=== PATIENT | female | born 1975 | race Caucasian/White ===

== ENCOUNTER → 2018-02-28 | Outpatient (CLI) | payer OTHER ==
--- NOTE | 2018-02-28 11:38 | MM ---
Reason for exam: clinical finding. History: Benign excisional biopsy of the right breast, 1996. Indicated problem(s): lump or thickening in the left breast. Physical Findings: Nurse Summary: 1.5cm nodule in the right breast at 3 o'clock, 0.5cm nodule in the left breast at 12 o'clock (nurse mj). MG Diagnostic Mammo w CAD TAVIA Bilateral CC and MLO view(s) were taken. The breast tissue is heterogeneously dense. This may lower the sensitivity of mammography. Benign calcifications seen. Nodularity seen bilaterally. These results were verbally communicated with the patient and result sheet given to the patient on 02/28/18. ASSESSMENT: Incomplete: need additional imaging evaluation, BI-RAD 0 RECOMMENDATION: Ultrasound of both breasts.
--- NOTE | 2018-02-28 11:44 | USB ---
Reason for exam: additional evaluation requested from abnormal screening. History: Benign excisional biopsy of the right breast, 1996. US Breast Limited BILAT Right limited breast ultrasound including focal area of concern, retroareolar and axilla demonstrates a 1.4 x 1.0 x 0.9cm oval, cystic lesion at 12 o'clock, a 0.9 x 0.9 x 0.6cm oval, cystic lesion at 1 o'clock, a 0.9 x 1.1 x 0.8cm oval, cystic lesion at 3 o'clock and duct ectasia at the posterior nipple. Left complete breast ultrasound includes all four quadrants, the retroareolar region and axilla. Finding demonstrates several oval, cystic lesions measuring 0.6 x 0.7 x 0.5cm cluster at 12 o'clock BB, 1.2 x 1.5 x 0.9cm at 2 o'clock, 1.4 x 0.9 x 0.8cm at 2 o'clock, 1.9 x 2.0 x 0.6cm at 2 o'clock, 0.8 x 1.0 x 0.5cm at 6 o'clock, 0.5 x 0.5 x 0.4cm at 8 o'clock, 0.7 x 0.6 x 0.4cm at 9 o'clock, 0.8 x 0.6 x 0.4cm at 11 o'clock and ductal ectasia at the posterior nipple. These results were verbally communicated with the patient and result sheet given to the patient on 02/28/18. ASSESSMENT: Benign, BI-RAD 2 RECOMMENDATION: Routine screening mammogram of both breasts in 1 year. Manage patient on a clinical basis.
== END | disposition home or self-care (01) ==
LOC: RADMAMWWP 09:27
PROVIDERS: ATTEND Pediatrics
DX: N63.20 Unspecified lump in the left breast, unspecified quadrant (principal); R92.8 Other abnormal and inconclusive findings on diagnostic imaging of breast
CPT/HCPCS: 77066

== ENCOUNTER → 2019-05-28 | Outpatient (CLI) | payer OTHER ==
--- NOTE | 2019-05-29 13:49 | MM ---
Reason for exam: screening (asymptomatic). Last mammogram was performed 1 year and 3 months ago. History: Benign excisional biopsy of the right breast, 1996. Physical Findings: A clinical breast exam by your physician is recommended on an annual basis and results should be correlated with mammographic findings. MG Screening Mammo w CAD Bilateral CC and MLO view(s) were taken. Prior study comparison: February 28, 2018, bilateral MG diagnostic mammo w CAD TAVIA. The breast tissue is heterogeneously dense. This may lower the sensitivity of mammography. There are benign appearing round, oval, circumscribed masses representing cysts seen on the ultrasound of 02/28/18 at 9-2 o'clock on the right and 12-3 o'clock on the left. Benign appearing calcifications in the left breast. No suspicious abnormality. No significant changes when compared with prior studies. ASSESSMENT: Benign, BI-RAD 2 RECOMMENDATION: Routine screening mammogram of both breasts in 1 year.
== END | disposition home or self-care (01) ==
LOC: RADMAMWWP 10:18
PROVIDERS: ATTEND Pediatrics
DX: Z12.31 Encounter for screening mammogram for malignant neoplasm of breast (principal)
CPT/HCPCS: 77067

== ENCOUNTER → 2020-11-09 | Outpatient (CLI) | payer OTHER ==
--- NOTE | 2020-11-11 12:03 | MM ---
Reason for exam: screening (asymptomatic). Last mammogram was performed 1 year and 5 months ago. History: Benign excisional biopsy of the right breast, 1996. Physical Findings: A clinical breast exam by your physician is recommended on an annual basis and results should be correlated with mammographic findings. MG Screening Mammo w CAD Bilateral CC and MLO view(s) were taken. Prior study comparison: May 28, 2019, bilateral MG screening mammo w CAD. February 28, 2018, bilateral MG diagnostic mammo w CAD TAVIA. The breast tissue is heterogeneously dense. This may lower the sensitivity of mammography. Suspect underlying partially obscured and partially circumscribed masses right upper outer quadrant, measuring up to 2.7cm versus 2cm previously. Underlying cysts are suspected. ASSESSMENT: Incomplete: need additional imaging evaluation, BI-RAD 0 RECOMMENDATION: Ultrasound of the right breast. [facility] will attempt to contact patient to return for ultrasound.
== END ==
LOC: RADMAMWWP 15:41
PROVIDERS: ATTEND Pediatrics
DX: Z12.31 Encounter for screening mammogram for malignant neoplasm of breast (principal)
CPT/HCPCS: 77067

== ENCOUNTER → 2020-11-23 | Outpatient (CLI) | payer OTHER ==
--- NOTE | 2020-11-23 09:50 | USB ---
Reason for exam: additional evaluation requested from abnormal screening. History: Benign excisional biopsy of the right breast, 1996. Physical Findings: Nurse did not find any significant physical abnormalities on exam. US Breast Workup Limited RT Right limited breast ultrasound including focal area of concern, retroareolar and axilla demonstrates a 2.0 x 1.7 x 1.3cm oval, cystic cluster at 12 o'clock BB, a 0.8 x 0.7 x 0.5cm oval, cystic lesion at 9 o'clock, a 2.4 x 2.3 x 1.2cm oval, cystic lesion at 10 o'clock, a 0.5 x 0.7 x 0.4cm oval, cystic cluster at 11 o'clock and duct ectasia at the posterior nipple. These results were verbally communicated with the patient and result sheet given to the patient on 11/23/20. ASSESSMENT: Benign, BI-RAD 2 RECOMMENDATION: Return to routine screening mammogram schedule for both breasts.
== END | disposition home or self-care (01) ==
LOC: RADUSWWP 07:37
PROVIDERS: ATTEND Pediatrics
DX: N60.01 Solitary cyst of right breast (principal); N60.41 Mammary duct ectasia of right breast

== ENCOUNTER 2021-10-13 13:12 | Emergency (ER) | payer OTHER ==
[2021-10-13 13:25] VITALS: BP 115/72; PULSE 92; RESP 16; TEMP 97.9
--- NOTE | 2021-10-13 14:55 | XR ---
EXAMINATION TYPE: XR knee complete RT DATE OF EXAM: 10/13/2021 COMPARISON: NONE HISTORY: 46 year-old female right knee pain TECHNIQUE: 3 views FINDINGS: There is tricompartmental degenerative spurring. Small knee joint effusion. Extensor mechan ism is intact. Mild to moderate narrowing of medial compartment joint space. No acute fracture, sublu xation, or dislocation. IMPRESSION: 1. Tricompartmental breast arthrosis. [id number] within the medial compartment. 2. Small knee joint effusion. This is nonspecific and may be reactive. If concern for internal derang ement, MRI can be performed. 3. No acute osseous abnormality seen.
--- NOTE | 2021-10-13 15:36 | US ---
EXAMINATION TYPE: US venous doppler duplex LE RT DATE OF EXAM: 10/13/2021 3:30 PM COMPARISON: NONE CLINICAL HISTORY: 46-year-old female Posterior knee pain . Right leg pain x 1 day SIDE PERFORMED: Right TECHNIQUE: The lower extremity deep venous system is examined utilizing real time linear array sonog annabelle with graded compression, doppler sonography and color-flow sonography. FINDINGS: VESSELS IMAGED: Common Femoral Vein Deep Femoral Vein Greater Saphenous Vein * Femoral Vein Popliteal Vein Small Saphenous Vein * Proximal Calf Veins (* superficial vessels) Right Leg: Appears negative for DVT Right popliteal fossa: 5.3 x 0.8 x 3.9cm Fitch's cyst. Thin elongated, mildly complex Fitch's cyst. IMPRESSION: 1. No evidence for DVT within the right lower extremity imaged from the groin to the upper calf. 2. A thin but elongated, mildly complex Fitch's cyst.
[2021-10-13] MEDS ORDERED: KETOROLAC 15 MG/ML 1 ML VIAL IM STA (16:00)
--- NOTE | 2021-10-13 16:12 | ED ---
General Adult HPI - General Chief complaint: Extremity Injury, Lower Stated complaint: R knee pain Time Seen by Provider: 10/13/21 14:48 Source: patient Mode of arrival: wheelchair Limitations: no limitations - History of Present Illness Initial comments: This is a 46-year-old female who presents emergency department for right knee pain. States that this morning she woke up with pain behind her knee. Denies any known injuries. This is described as being crampy and radiates both superiorly and inferiorly. She was unable to walk this morning due to the pain. She is currently being seen by orthopedics and has plans for bilateral knee replacements. Location: lower extremity (Right knee) Severity scale (1-10): 8 Quality: other (cramping) Consistency: constant Improves with: none Associated Symptoms: denies other symptoms - Related Data Allergies Allergy/AdvReac Type Severity Reaction Status Date / Time No Known Allergies Allergy Verified 10/13/21 13:25 Review of Systems ROS Statement: Those systems with pertinent positive or pertinent negative responses have been documented in the HPI. ROS Other: All systems not noted in ROS Statement are negative. Constitutional: Denies: fever, chills Respiratory: Denies: cough, dyspnea Cardiovascular: Denies: chest pain, palpitations Gastrointestinal: Denies: abdominal pain, nausea, vomiting Musculoskeletal: Reports: other (posterior right knee pain) Skin: Denies: rash, lesions Neurological: Denies: headache, weakness Past Medical History Past Medical History: Deep Vein Thrombosis (DVT) Additional Past Medical History / Comment(s): sjogrens disease History of Any Multi-Drug Resistant Organisms: None Reported Past Surgical History: Section, Cholecystectomy, Hysterectomy Past Psychological History: No Psychological Hx Reported Smoking Status: Never smoker Past Alcohol Use History: None Reported Past Drug Use History: None Reported General Exam Limitations: no limitations General appearance: alert, in no apparent distress Head exam: Present: atraumatic, normocephalic, normal inspection Respiratory exam: Present: normal lung sounds bilaterally. Absent: respiratory distress, wheezes, rales, rhonchi, stridor Cardiovascular Exam: Present: regular rate, normal rhythm, normal heart sounds. Absent: systolic murmur, diastolic murmur, rubs, gallop, clicks Right Upper Leg exam: Present: normal inspection, full ROM. Absent: tenderness Knee exam: Present: full ROM, tenderness (Tenderness and mild fullness in the popliteal fossa ). Absent: ecchymosis, erythema Lower Leg exam: Present: normal inspection, full ROM. Absent: tenderness Neurovascular tendon exam: Present: no vascular compromise. Absent: pulse deficit, abnormal cap refill Neurological exam: Present: alert, oriented X3, CN II-XII intact Psychiatric exam: Present: normal affect, normal mood Skin exam: Present: warm, dry, intact, normal color. Absent: rash Course Vital Signs 10/13/21 13:21 Temperature 97.9 F Pulse Rate 92 Respiratory 16 Rate Blood Pressure 115/72 O2 Sat by Pulse 97 Oximetry - Reevaluation(s) Time: 15:10 Time: 15:50 Medical Decision Making - Medical Decision Making Given the acute onset, severity of the pain, and palpable fullness of the posterior aspect of the knee, an ultrasound was performed. Ultrasound revealed a popliteal cyst, consistent with the patient's symptoms. No DVTs were visualized, nor were they expected, as the patient does not have any erythema, swelling, or increased heat. Patient given injection of Toradol prior to discharge. Advised patient contact her orthopedic surgeon and discuss changes in medication, specifically the anti-inflammatory, given her current pain and new finding of the popliteal cyst. Disposition Clinical Impression: Popliteal cyst Disposition: HOME SELF-CARE Condition: Stable Instructions (If sedation given, give patient instructions): Bakers Cyst (ED) Additional Instructions: Return to the emergency department if symptoms worsen or do not improve. Is patient prescribed a controlled substance at d/c from ED?: No Referrals: Presley Moran MD [Primary Care Provider] - 1-2 days
== END 2021-10-13 16:31 | disposition home or self-care (01) ==
LOC: EC 13:12
DX: M71.21 Synovial cyst of popliteal space [Baker], right knee (principal); Z86.718 Personal history of other venous thrombosis and embolism; Z90.49 Acquired absence of other specified parts of digestive tract; Z90.710 Acquired absence of both cervix and uterus
CPT/HCPCS: 99284; 96372; 73562; 93971; J1885

== ENCOUNTER → 2021-10-27 | Outpatient (CLI) | payer OTHER ==
--- NOTE | 2021-10-27 15:42 | US ---
EXAMINATION TYPE: US thyroid st tissue head/neck DATE OF EXAM: 10/27/2021 COMPARISON: NONE CLINICAL HISTORY: 46-year-old female E04.1. thyroid nodule GLAND SIZE: Right Lobe: 4.5 x 1.8 x 1.1 cm Overall Parenchyma: homogenous Left Lobe: 4.5 x 1.2 x 1.7 cm Overall Parenchyma: homogeneous Isthmus Thickness: cm NODULES RIGHT: # of nodules measured on right: 1 1. .47 X .5 x .6 cm, mid mid, solid or almost completely solid, isoechoic TR3 nodule, which is wide r than tall, with ill-defined margins, without echogenic foci. Prior size no prior LEFT: # of nodules measured on left: 1 1. 2.3 X 1.2 x 2.0 cm, lower , solid or almost completely solid, isoechoic TR3 nodule, which is wid er than tall, with smooth margins, without echogenic foci. Prior size: No prior ISTHMUS: # of nodules measured in the isthmus: 0 Bilateral neck scanned, no evidence of lymphadenopathy. IMPRESSION: A TR3 nodule on either side. The nodule on the left is larger at 2.3 cm. Follow-up recommended. FNA i f it reaches 2.5 cm.
== END | disposition home or self-care (01) ==
LOC: RADUSWWP 12:19
PROVIDERS: ATTEND Psychiatry & Neurology Neurology
DX: E04.1 Nontoxic single thyroid nodule (principal)
CPT/HCPCS: 76536

== ENCOUNTER → 2021-10-27 | Outpatient (CLI) | payer OTHER ==
[2021-10-27 13:15] LABS: INR 0.9 (<1.2); Prothrombin Time 9.8 sec (9.0-12.0)
[2021-10-27 18:17] LABS: African American GFR (CKD) 79.4 (60.0-200.0); Albumin 4.2 g/dL (3.8-4.9); Albumin/Globulin Ratio 1.58 (1.60-3.17); Anion Gap 11.1 mmol/L (10.00-18.00); Calcium 8.7 mg/dL (8.7-10.3); Carbon Dioxide 21.7 mmol/L (20.0-27.5); Globulin 2.6 g/dL (1.6-3.3); Non-African American GFR(CKD) 68.5 (60.0-200.0); Potassium 4.3 mmol/L (3.5-5.5); Total Bilirubin 0.8 mg/dL (0.30-1.20); Total Protein 6.8 g/dL (6.2-8.2)
[2021-10-27 19:53] LABS: HCT 36.4 % (37.2-46.3); HGB 11.6 g/dL (12.0-15.0); MCH 29.6 pg (27.0-32.0); MCHC 31.9 g/dL (32.0-37.0); MCV 92.9 fL (80.0-97.0); Mean Platelet Volume 8.9 fL (9.5-12.2); NRBC Per 100 WBC 0 /100 WBCS (0.0-0.0); Platelet Count 463 X 10*3/uL (140-440); RBC 3.92 X 10*6/uL (4.10-5.20); RDW 12.5 % (11.5-14.5); WBC 8.53 X 10*3/uL (4.50-10.00)
[2021-10-27 21:11] LABS: Appearance,Urine Clear (Clear); Bilirubin,Urine Negative (Negative); Blood,Urine Negative (Negative); Color,Urine Yellow (Yellow); Ketones,Urine Negative (Negative); Leukocyte Esterase,Urine Negative (Negative); Nitrite,Urine Negative (Negative); Protein,Urine Negative (Negative); Urobilinogen,Urine 0.2 (0.2,1.0)
== END | disposition home or self-care (01) ==
LOC: LABPAT 12:17
PROVIDERS: ATTEND Orthopaedic Surgery
DX: Z01.818 Encounter for other preprocedural examination (principal); M17.12 Unilateral primary osteoarthritis, left knee
CPT/HCPCS: 80053; 81003; 85027; 85610; 85730; 87070; 93005

== ENCOUNTER 2021-11-11 09:16 | Day surgery (SDC) | payer OTHER ==
[2021-11-08 09:56] VITALS: BMI 35.4
[~2021-11-11 09:16] MED LIST: ACETAMINOPHEN TAB 500 MG TAB PO PRN; DEXAMETHASONE SOD PHOSPHATE 10 MG/ML 1 ML VIAL IV PRN; DEXAMETHASONE SOD PHOSPHATE 4 MG/ML 1 ML VIAL IV ONE; DOCUSATE 100 MG CAP PO PRN; FAMOTIDINE 20 MG/2 ML VIAL IVP PRN; HYDROmorphone 0.5 MG/0.5 ML SYRINGE IVP PRN; KETOROLAC 15 MG/ML 1 ML VIAL IVP PRN; LACTATED RINGERS 1,000 ML IV SCH; ONDANSETRON 4 MG/2 ML VIAL IVP ONE; ONDANSETRON 4 MG/2 ML VIAL IVP PRN; TRANEXAMIC ACID 1,000 MG in SODIUM CHLORIDE 0.9% 100 ML IVPB ONE; TRANEXAMIC ACID IN NACL,ISO-OS 1,000 MG in SALINE 1 100ML.BAG IVPB PRN; oxyCODONE ER 10 MG TAB.ER.12H PO PRN
[2021-11-11] MEDS ORDERED: MIDAZOLAM 2 MG/2 ML VIAL IV ONE (10:24)
--- NOTE | 2021-11-11 11:01 | P.ANPRN ---
Procedure Note - Anesthesia - Nerve Block Performed Left Adductor Canal Infusion Time Out Performed: Yes (1023) Date of Procedure: 11/11/21 Procedure Start Time: 10:24 Procedure Stop Time: :31 Location of Patient: PreOp Indication: Acute Post-Operative Pain, Requested by Surgeon Specifically requested for management of pain by DrJake: Crescencio Lal Sedation Type: Sedate with meaningful contact maintained Preparation: Sterile Prep, Sterile Dressing Position: Supine (8) Catheter Depth at Skin (cm): 9 Catheter: Indwelling Needle Types: Pajunk Needle Gauge: 21 Ultrasound used to visualize needle placement: Yes Ultrasound used to observe medication spread: Yes Injectate: 0.5% Ropivacaine (see comment for volume) (15cc + 5cc nacl) Blood Aspirated: No Pain Paresthesia on Injection Noted: No Resistance on Injection: Normal Image Stored and Saved: Yes Events: Uneventful and Well Tolerated
--- NOTE | 2021-11-11 11:03 | P.ANPRN ---
Procedure Note - Anesthesia - Nerve Block Performed Left iPack Single Time Out Performed: Yes (1023) Date of Procedure: 11/11/21 Procedure Start Time: :24 Procedure Stop Time: : Location of Patient: PreOp Indication: Acute Post-Operative Pain, Requested by Surgeon Specifically requested for management of pain by DrJake: Crescencio Lal Sedation Type: Sedate with meaningful contact maintained Preparation: Sterile Prep Position: Supine Catheter: None Needle Types: Pajunk Needle Gauge: 21 Ultrasound used to visualize needle placement: Yes Ultrasound used to observe medication spread: Yes Injectate: 0.5% Ropivacaine (see comment for volume) (15cc + 5cc nacl) Blood Aspirated: No Pain Paresthesia on Injection Noted: No Resistance on Injection: Normal Image Stored and Saved: Yes Events: Uneventful and Well Tolerated
[2021-11-11] MEDS: ROPIVACAINE/EPI/CLONIDINE/KET 50 ML SYRINGE MISCELLANE PRN ×2 (13:39→14:54)
[2021-11-11] MEDS ORDERED: TRANEXAMIC ACID IN NACL,ISO-OS 1,000 MG/100 ML BAG ONE (13:42)
[2021-11-11] MEDS ORDERED: LIDOCAINE 1% INJ 10MG/ML (20 ML MDV) ONE (13:42)
[2021-11-11] MEDS ORDERED: ceFAZolin 3,000 MG in SODIUM CHLORIDE 0.9% IRRIGATIO 3,000 ML IRRIGATION ONE (13:42)
[2021-11-11] MEDS ORDERED: SODIUM CHLORIDE 0.9% (PF) 10 ML VIAL ONE (13:42)
[2021-11-11] MEDS ORDERED: MIDAZOLAM 2 MG/2 ML VIAL ONE (13:42)
[2021-11-11] MEDS ORDERED: ePHEDrine 50 MG/ML 1 ML VIAL ONE (13:42)
[2021-11-11] MEDS ORDERED: PROPOFOL 10 MG/ML 20 ML VIAL IV ONE (13:42)
[2021-11-11] MEDS ORDERED: ROCURONIUM 10 MG/ML (5 ML VIAL) IV ONE (13:42)
[2021-11-11] MEDS ORDERED: fentaNYL (PF) 50 MCG/ML 2 ML AMP ONE (13:42)
[2021-11-11] MEDS ORDERED: GLYCOPYRROLATE 0.2 MG/ML 2 ML VIAL ONE (13:42)
[2021-11-11] MEDS ORDERED: NEOSTIGMINE 1 MG/ML 10 ML VIAL ONE (13:42)
[2021-11-11] MEDS ORDERED: PHENYLEPHRINE-0.9% NACL SYG 1,000 MCG/10 ML SYRINGE ONE (13:42)
[2021-11-11] MEDS ORDERED: ROPIVACAINE 5 MG/ML 30 ML VIAL ONE (13:42)
[2021-11-11] MEDS ORDERED: LACTATED RINGERS 1,000 ML IV ONE (14:33)
[2021-11-11] MEDS ORDERED: ONDANSETRON 4 MG/2 ML VIAL IVP PRN (15:59)
[2021-11-11] MEDS ORDERED: HYDROmorphone 1 MG/ML 1 ML SYRINGE IVP PRN (15:59)
[2021-11-11] MEDS ORDERED: HYDROcodone/APAP 5-325MG 1 EACH TAB PO PRN ×2 (15:59)
[2021-11-11] MEDS ORDERED: NALOXONE 0.4 MG/ML 1 ML VIAL IV PRN (15:59)
[2021-11-11] MEDS ORDERED: HYDROmorphone 0.5 MG/0.5 ML SYRINGE IVP PRN (15:59)
[2021-11-11] MEDS ORDERED: HYDROmorphone 0.2 MG/1 ML SYRINGE IVP PRN (15:59)
--- NOTE | 2021-11-11 16:09 | P.OP ---
Date of Procedure: 11/11/21 Preoperative Diagnosis: 1. Left medial compartment osteoarthritis 2. BMI 35 Postoperative Diagnosis: Same Procedure(s) Performed: Left medial compartment unicompartmental knee arthroplasty Implants: 1. [place] MCK Size #3 Femur 2. [place] MCK Size #3 Tibia 3. [place] MCK Size #3, 8-mm poly Anesthesia: GETA, regional Surgeon: Crescencio Lal Material Handling Technician #1: Anabella Sanz Estimated Blood Loss (ml): 25 IV fluids (ml): 1,200 Pathology: none sent Condition: stable Disposition: PACU Indications for Procedure: The patient is very pleasant. Healthy 46-year-old female who was referred to me by Robert Reed with bilateral knee pain. The patient had isolated medial compartment arthritis on both knees worsen the left. She failed a long course of nonsurgical treatment and has requested proceeding with surgery. We discussed osteotomy, medial compartment arthroplasty, and total knee arthroplasty. Based on the patient's presentation, physical exam, age, and x- ray findings I think she would do best with a medial compartment partial knee arthroplasty. Her BMI was 35 which is acceptable. When asked to localize her pain she pointed only over the medial compartment of the knee. We discussed the potential for conversion of the partial to total knee replacement if there is more diffuse arthritis intraoperatively. We had a long discussion on the potential risks and competitions of surgery including but certainly not limited to risks of anesthesia, superficial infection, deep infection, delayed wound healing, wound necrosis, damage to local blood vessels or nerves, superficial infection, deep prosthetic joint infection, stiffness, instability, aseptic loosening, progression of arthritis requiring conversion to total knee arthroplasty, continued or worsened pain, DVT, PE, other medical complications, dissatisfaction with her surgical outcome, and possibly loss of life or limb. The patient voiced her understanding that while these are the most common complications other complications are possible. Again we discussed the distinct possibility of conversion of a partial to a total knee replacement down the road due to progression of arthritis. She voiced her understanding of all this and gave both her verbal and written consent to go forward with surgery. Operative Findings: There is full-thickness cartilage loss in the medial femoral condyle and tibial plateau. The patellofemoral joint including the undersurface of the patella and lateral compartment had no signs of degenerative changes. The decision was made to proceed with a medial compartment unicompartmental knee arthroplasty. Description of Procedure: The patient was identified in preoperative holding and the correct operative extremity was verified and marked with a marker. I reviewed the consent form with the patient at length. All of their questions were answered. The patient was given a block by anesthesia. They were then brought back to the operating room. They were transferred onto the operating room table where a general anesthetic, preoperative antibiotics, and tranexamic acid were administered by anesthesia. A tourniquet was applied to the proximal aspect of the operative extremity. The contralateral extremity was padded under the heel and secured to the operating room table with a nonsterile blue towel and tape. The ipsilateral arm was carefully draped across the patient's chest and secured with a pillow and foam. A post was applied over the lateral aspect of the ipsilateral thigh and a bolster was placed under the ipsilateral foot. I verified that the operative extremity was stable and the knee was flexed to 90. The operative extremity was then placed in a leg luis, nonsterile drapes were applied, and the extremity was prepped and draped sterilely in the standard sterile fashion. Prior to starting surgery timeout was performed identifying the correct patient, operative extremity, and procedure. The leg was then elevated, exsanguinated with an Esmarch bandage, and the tourniquet was inflated. An anterior midline incision was made sharply with a scalpel. Once I had dissected deep to the superficial fascial layer medial and lateral flaps were elevated. A medial parapatellar arthrotomy was created. Upon opening the knee joint there was arthritis isolated to the medial compartment. There was no arth ritis in the patellofemoral joint or lateral compartment. The ACL was probed and found to be intact. The decision was made to proceed with a unicompartmental arthroplasty of the medial compartment. The anterior horn of the medial meniscus were sharply released and a medial release was performed around the posterior medial corner of the knee to facilitate retractor placement. A small portion of the fat pad was excised with electrocautery . 4 mm pins were then placed within the incision in the medial distal femur and proximal tibia. Arrays were applied to the pins and I verified they were completely tightened. The knee was then registered with the CAD Crowd robot and manipulations in implant position were made to balance the knee and opitmize implant position. Using the CAD Crowd robotic saw and candice all cuts were made in accordance with our plan. All bony fragments were removed. The joint was irrigated. Local anesthetic was then infiltrated around the joint capsule. Trial implants were then placed within the knee. Range of motion and collateral ligament tension was then evaluated. Adjustments in implant size and position were then made accordingly. Once the knee was felt to be appropriately balanced the Enrique pins were removed. The trial components were removed and the knee was thoroughly irrigated. Cement was prepared via vacuum mixing in a bowl on the back table. I then hand pressurized cement into the femur and tibia and placed the implants beginning with the tibial base tray, femoral component, and finally the polyliner. All extruded cement was removed including from the pin sites. Once the cement had hardened the knee was evaluated one final time with the final polyethylene liner in place. The knee had full extension and flexion and felt stable to varus and valgus stress throughout the arc of motion. The tourniquet was released and with the tourniquet down the patella tracked midline. All bleeders were controlled with electrocautery. The knee was tho roughly irrigated using 3 L of sterile saline and pulsatile lavage. The extensor mechanism was then reapproximated using pop off Vicryl sutures followed by a running barbed suture. The knee was then closed in layers with a 0 strata fix for the deep fascial layer, 2-0 strata fix for the superficial subcutaneous layer and Monocryl and Steri-Strips for the skin. A sterile dressing was applied. I verified that all instrument, sponge, and sharp counts were correct. The patient was then transferred off the operating room table, extubated, and brought to recovery having tolerated the procedure well. Anabella Sanz PA-C was required as a skilled clinical trial assistant due to the complexity of the procedure for patient positioning, draping, retraction, placement of hardware, and closure of wound. PLAN: The patient can weight-bear as tolerated on the operative extremity. DVT prophylaxis with aspirin 81 mg twice a day based on preoperative risk stratification. Follow-up in the office in 2 weeks for wound check and x-rays of the knee including an AP and lateral.
[2021-11-11 16:27] VITALS: RESP 16
--- NOTE | 2021-11-11 16:55 | XR ---
EXAMINATION TYPE: XR knee limited LT DATE OF EXAM: 11/11/2021 4:24 PM INDICATION: Patient age:Female; 46 years old; Reason for study: Evaluation for Postop abnormality and alignment; COMPARISON: Left CT radiograph 10/18/2021 TECHNIQUE: The Left knee(s) was examined in AP and lateral projections. FINDINGS: Interval hemiarthroplasty changes of the medial left knee joint. Postsurgical changes wit h lucency within the suprapatellar joint space and skin are present. Hardware appears intact. There i s no evidence of fracture. Postsurgical changes projecting over the proximal tibia with lucencies. Th ere is an appropriate alignment of the knee. IMPRESSION: Interval left knee medial hemiarthroplasty with hardware intact with appropriate alignment. No eviden ce of fracture.
[2021-11-11] MEDS ORDERED: ROPIVACAINE 0.2%-NS ON-Q PUMP 2 MG/ML EACH MISCELLANE ONE (17:10)
[2021-11-11 20:35] VITALS: BP 109/68; PULSE 95; TEMP 97.6
[2021-11-11] MEDS ORDERED: SENNOSIDES-DOCUSATE SODIUM 1 EACH TAB PO SCH (21:00)
[2021-11-11] MEDS ORDERED: ASPIRIN 81 MG PO SCH (21:00)
== END 2021-11-11 22:25 | disposition home or self-care (01) ==
LOC: OR 09:16 → 4SSUR 15:51 → OR 22:25
PROVIDERS: ATTEND Orthopaedic Surgery
DX: M17.12 Unilateral primary osteoarthritis, left knee (principal)
CPT/HCPCS: 27446; 97166; 64999; 64448; 76942; 73560; C1776; C1713; J2250; J1100; J2710; J0690 ×2; J2405; J2001; J3010; J2795 ×2; J1885; J2370; J2704

== ENCOUNTER → 2022-01-06 | Outpatient (CLI) | payer OTHER ==
[2022-01-06 15:19] LABS: INR 0.9 (<1.2)
[2022-01-06 22:29] LABS: HCT 37.3 % (37.2-46.3); HGB 11.6 g/dL (12.0-15.0); MCH 29.1 pg (27.0-32.0); MCHC 31.1 g/dL (32.0-37.0); MCV 93.7 fL (80.0-97.0); NRBC Per 100 WBC 0 /100 WBCS (0.0-0.0); Platelet Count 520 X 10*3/uL (140-440); RBC 3.98 X 10*6/uL (4.10-5.20); RDW 12.2 % (11.5-14.5); WBC 8.14 X 10*3/uL (4.50-10.00)
[2022-01-06 22:37] LABS: African American GFR (CKD) 74.8 (60.0-200.0); Albumin 4.5 g/dL (3.8-4.9); Albumin/Globulin Ratio 1.75 (1.60-3.17); Anion Gap 10.1 mmol/L (10.00-18.00); BUN/Creat Ratio 14.38 Ratio (12.00-20.00); Blood Urea Nitrogen 15.1 mg/dL (9.0-27.0); Calcium 9.1 mg/dL (8.7-10.3); Carbon Dioxide 23.5 mmol/L (20.0-27.5); Globulin 2.6 g/dL (1.6-3.3); Non-African American GFR(CKD) 64.5 (60.0-200.0); Potassium 3.6 mmol/L (3.5-5.5); Total Bilirubin 0.3 mg/dL (0.30-1.20); Total Protein 7.1 g/dL (6.2-8.2)
[2022-01-07 02:04] LABS: Appearance,Urine Turbid (Clear); Bacteria,Urine None Seen /HPF (None Seen); Bilirubin,Urine Negative (Negative); Blood,Urine Negative (Negative); Color,Urine Yellow (Yellow); Ketones,Urine Trace mg/dL (Negative); Nitrite,Urine Negative (Negative); PH, Urine 7.5 (5.0-8.0); Specific Gravity,Urine 1.018 (1.001-1.030)
== END | disposition home or self-care (01) ==
LOC: LABPAT 14:07
PROVIDERS: ATTEND Orthopaedic Surgery
DX: Z01.812 Encounter for preprocedural laboratory examination (principal)
CPT/HCPCS: 36415; 80053; 81001; 85027; 85610; 85730; 87070

== ENCOUNTER 2022-02-03 05:43 | Day surgery (SDC) | payer OTHER ==
[2022-02-01 10:20] VITALS: BMI 35.4
[~2022-02-03 05:43] MED LIST changes: -ACETAMINOPHEN TAB 500 MG TAB PO PRN; -DEXAMETHASONE SOD PHOSPHATE 10 MG/ML 1 ML VIAL IV PRN; -DEXAMETHASONE SOD PHOSPHATE 4 MG/ML 1 ML VIAL IV ONE; -DOCUSATE 100 MG CAP PO PRN; -FAMOTIDINE 20 MG/2 ML VIAL IVP PRN; -HYDROmorphone 0.5 MG/0.5 ML SYRINGE IVP PRN; -KETOROLAC 15 MG/ML 1 ML VIAL IVP PRN; -LACTATED RINGERS 1,000 ML IV SCH; -ONDANSETRON 4 MG/2 ML VIAL IVP ONE; -ONDANSETRON 4 MG/2 ML VIAL IVP PRN; -TRANEXAMIC ACID 1,000 MG in SODIUM CHLORIDE 0.9% 100 ML IVPB ONE; -oxyCODONE ER 10 MG TAB.ER.12H PO PRN
[2022-02-03] MEDS ORDERED: DOCUSATE 100 MG CAP PO PRN (06:00)
[2022-02-03] MEDS ORDERED: ONDANSETRON 4 MG/2 ML VIAL IVP PRN (06:00)
[2022-02-03] MEDS ORDERED: DEXAMETHASONE SOD PHOSPHATE 10 MG/ML 1 ML VIAL IV PRN (06:00)
[2022-02-03] MEDS ORDERED: oxyCODONE ER 10 MG TAB.ER.12H PO PRN (06:00)
[2022-02-03] MEDS ORDERED: KETOROLAC 15 MG/ML 1 ML VIAL IVP PRN (06:00)
[2022-02-03] MEDS ORDERED: ACETAMINOPHEN TAB 500 MG TAB PO PRN (06:00)
[2022-02-03] MEDS ORDERED: FAMOTIDINE 20 MG/2 ML VIAL IVP PRN (06:00)
[2022-02-03] MEDS ORDERED: MIDAZOLAM 2 MG/2 ML VIAL IV PRN (06:10)
[2022-02-03] MEDS ORDERED: LACTATED RINGERS 1,000 ML IV SCH (06:10)
[2022-02-03] MEDS ORDERED: HYDROmorphone 0.5 MG/0.5 ML SYRINGE IVP PRN (07:00)
[2022-02-03] MEDS ORDERED: fentaNYL (PF) 50 MCG/ML 2 ML AMP IVP ONE (07:04)
[2022-02-03] MEDS ORDERED: MIDAZOLAM 2 MG/2 ML VIAL IVP ONE (07:04)
[2022-02-03] MEDS ORDERED: PROPOFOL 10 MG/ML 20 ML VIAL IV ONE (07:30)
[2022-02-03] MEDS ORDERED: GLYCOPYRROLATE 0.2 MG/ML 2 ML VIAL ONE (07:30)
[2022-02-03] MEDS ORDERED: fentaNYL (PF) 50 MCG/ML 2 ML AMP ONE (07:30)
[2022-02-03] MEDS ORDERED: NEOSTIGMINE 1 MG/ML 10 ML VIAL ONE (07:30)
[2022-02-03] MEDS ORDERED: LIDOCAINE 2% INJ 20 MG/ML (2 ML VIAL) ONE (07:30)
[2022-02-03] MEDS ORDERED: DEXAMETHASONE SOD PHOSPHATE 4 MG/ML 1 ML VIAL ONE (07:30)
[2022-02-03] MEDS ORDERED: ROPIVACAINE 5 MG/ML 30 ML VIAL ONE (07:30)
[2022-02-03] MEDS ORDERED: TRANEXAMIC ACID IN NACL,ISO-OS 1,000 MG/100 ML BAG ONE (07:30)
[2022-02-03] MEDS ORDERED: SUCCINYLCHOLINE CHLORIDE 100 MG/5 ML SYR IV ONE (07:30)
[2022-02-03] MEDS ORDERED: ROCURONIUM 10 MG/ML (5 ML VIAL) IV ONE (07:30)
--- NOTE | 2022-02-03 07:34 | P.ANPRN ---
Procedure Note - Anesthesia - Nerve Block Performed Right Adductor Canal Single Time Out Performed: Yes Date of Procedure: 02/03/22 Procedure Start Time: 07:04 Procedure Stop Time: 07:12 Location of Patient: PreOp Indication: Acute Post-Operative Pain, Requested by Surgeon Specifically requested for management of pain by : Crescencio Lal Sedation Type: Sedate with meaningful contact maintained Preparation: Sterile Prep, Sterile Dressing Position: Supine Catheter: None Needle Types: Pajunk Needle Gauge: 20 Ultrasound used to visualize needle placement: Yes Ultrasound used to observe medication spread: Yes Injectate: 0.5% Ropivacaine (see comment for volume) (15 ml + decadron 2 mg) Blood Aspirated: No Pain Paresthesia on Injection Noted: No Resistance on Injection: Normal Image Stored and Saved: Yes Events: Uneventful and Well Tolerated Right iPack Single Date of Procedure: 02/03/22 Procedure Start Time: 07:13 Procedure Stop Time: 07:16 Location of Patient: PreOp Indication: Acute Post-Operative Pain, Requested by Surgeon Sedation Type: Sedate with meaningful contact maintained Preparation: Sterile Prep, Sterile Dressing Position: Supine Catheter: None Needle Types: Pajunk Needle Gauge: 20 Ultrasound used to visualize needle placement: Yes Ultrasound used to observe medication spread: Yes Injectate: 0.5% Ropivacaine (see comment for volume) (15 ml + decadron 2 mg) Blood Aspirated: No Pain Paresthesia on Injection Noted: No Resistance on Injection: Normal Image Stored and Saved: Yes Events: Uneventful and Well Tolerated
[2022-02-03] MEDS: ROPIVACAINE/EPI/CLONIDINE/KET 50 ML SYRINGE MISCELLANE PRN ×2 (08:13→08:39)
[2022-02-03] MEDS ORDERED: LACTATED RINGERS 1,000 ML IV ONE (09:16)
--- NOTE | 2022-02-03 09:49 | P.OP ---
Date of Procedure: 02/03/22 Preoperative Diagnosis: Right medial compartment arthritis Postoperative Diagnosis: Same Procedure(s) Performed: Right unicompartmental knee arthroplasty (medial compartment) Implants: 1. Anurag ENRIQUE MCK Size 2 femur 2. Anurag ENRIQUE MCK Size 3 tibia 3. [place] MCK size 3, 8-mm poly Anesthesia: GETA Surgeon: Crescencio Lal [employer] Operations Manager #1: Anabella Sanz Estimated Blood Loss (ml): 50 IV fluids (ml): 1,200 Pathology: none sent Condition: stable Disposition: PACU Indications for Procedure: The patient is very pleasant. Healthy 46-year-old female who was referred to me by Robert Reed with bilateral knee pain. The patient had isolated medial compartment arthritis on both knees. She failed a long course of nonsurgical treatment and has requested proceeding with surgery. She previously had a left unicompartmental knee arthroplasty and did very well with this. We discussed osteotomy, medial compartment arthroplasty, and total knee arthroplasty. Based on the patient's presentation, physical exam, age, previously doing well with a partial medial unicompartmental arthroplasty on the contralateral side, and x- ray findings I think she would do best with a medial compartment partial knee arthroplasty. Her BMI was 35 which is acceptable. When asked to localize her pain she pointed only over the medial compartment of the knee. We discussed the potential for conversion of the partial to total knee replacement if there is more diffuse arthritis intraoperatively. We had a long discussion on the potential risks and competitions of surgery including but certainly not limited to risks of anesthesia, superficial infection, deep infection, delayed wound healing, wound necrosis, damage to local blood vessels or nerves, superficial infection, deep prosthetic joint infection, stiffness, instability, aseptic loosening, progression of arthritis requiring conversion to total knee arthroplasty, continued or worsened pain, DVT, PE, other medical complications, dissatisfaction with her surgical outcome, and possibly loss of life or limb. The patient voiced her understanding that while these are the most common complications other complications are possible. Again we discussed the distinct possibility of conversion of a partial to a total knee replacement down the road due to progression of arthritis. She voiced her understanding of all this and gave both her verbal and written consent to go forward with surgery. Operative Findings: Isolated full-thickness cartilage loss in the medial compartment. The undersurface the patella, femoral trochlea, and lateral compartment were completely free of arthritis. There was full-thickness cartilage that appeared normal throughout the remainder of the knee other than the medial compartment. Description of Procedure: The patient was identified in preoperative holding and the correct operative extremity was verified and marked with a marker. I reviewed the consent form with the patient at length. All of their questions were answered. The patient was given a block by anesthesia. They were then brought back to the operating room. They were transferred onto the operating room table where a general anesthetic, preoperative antibiotics, and tranexamic acid were administered by anesthesia. A tourniquet was applied to the proximal aspect of the operative extremity. The contralateral extremity was padded under the heel and secured to the operating room table with a nonsterile blue towel and tape. The ipsilateral arm was carefully draped across the patient's chest and secured with a pillow and foam. A post was applied over the lateral aspect of the ipsilateral thigh and a bolster was placed under the ipsilateral foot. I verified that the operative extremity was stable and the knee was flexed to 90. The operative extremity was then placed in a leg luis, nonsterile drapes were applied, and the extremity was prepped and draped sterilely in the standard sterile fashion. Prior to starting surgery timeout was performed identifying the correct patient, operative extremity, and procedure. The leg was then elevated, exsanguinated with an Esmarch bandage, and the tourniquet was inflated. An anterior midline incision was made sharply with a scalpel. Once I had dissected deep to the superficial fascial layer medial and lateral flaps were elevated. A medial parapatellar arthrotomy was created. Upon opening the knee joint there was arthritis isolated to the medial compartment. There was no arthritis in the patellofemoral joint or lateral compartment. The ACL was probed and found to be intact. The decision was made to proceed with a unicompartmental arthroplasty of the medial compartment. The anterior horn of the medial meniscus were sharply released and a medial release was performed around the posterior medial corner of the knee to facilitate retractor placement. A small portion of the fat pad was excised with electrocautery . 4 mm pins were then placed within the incision in the medial distal femur and proximal tibia. Arrays were applied to the pins and I verified they were completely tightened. The knee was then registered with the [email or web address] robot and manipulations in implant position were made to balance the knee and opitmize implant position. Using the Enrique robotic saw and candice all cuts were made in accordance with our plan. All bony fragments were removed. The joint was irrigated. Local anesthetic was then infiltrated around the joint capsule. Trial implants were then placed within the knee. Range of motion and collateral ligament tension was then evaluated. Adjustments in implant size and position were then made accordingly. Once the knee was felt to be appropriately balanced the Enrique pins were removed. The trial components were removed and the knee was thoroughly irrigated. Cement was prepared via vacuum mixing in a bowl on the back table. I then hand pressurized cement into the femur and tibia and placed the implants beginning with the tibial base tray, femoral component, and finally the polyliner. All extruded cement was removed including from the pin sites. Once the cement had hardened the knee was evaluated one final time with the final polyethylene liner in place. The knee had full extension and flexion and felt stable to varus and valgus stress throughout the arc of motion. The tour niquet was released and with the tourniquet down the patella tracked midline. All bleeders were controlled with electrocautery. The knee was thoroughly irrigated using 3 L of sterile saline and pulsatile lavage. The extensor mechanism was then reapproximated using pop off Vicryl sutures followed by a running barbed suture. The knee was then closed in layers with a 0 strata fix for the deep fascial layer, 2-0 strata fix for the superficial subcutaneous layer and Monocryl and Steri-Strips for the skin. A sterile dressing was applied. I verified that all instrument, sponge, and sharp counts were correct. The patient was then transferred off the operating room table, extubated, and brought to recovery having tolerated the procedure well. Anabella Sanz PA-C was required as a skilled document control assistant due to the complexity of the procedure for patient positioning, draping, retraction, placement of hardware, and closure of wound. PLAN: The patient can weight-bear as tolerated on the operative extremity. DVT prophylaxis with aspirin 81 mg twice a day based on preoperative risk stratification. Follow-up in the office in 2 weeks for wound check and x-rays of the knee including an AP and lateral.
[2022-02-03 09:54] VITALS: TEMP 97.2
[2022-02-03 10:56] VITALS: RESP 16
[2022-02-03 12:21] VITALS: BP 108/70; PULSE 89
== END 2022-02-03 12:35 | disposition home or self-care (01) ==
LOC: OR 05:43
PROVIDERS: ATTEND Orthopaedic Surgery
DX: M17.11 Unilateral primary osteoarthritis, right knee (principal); G89.18 Other acute postprocedural pain
CPT/HCPCS: 27446; 97110; 97161; 64447; 64999; 76942; C1776; C1713; J2250; J1100 ×2; J2710; J0690; J2405; J3010; J2795; J1885; J0330; J2704; J2001

== ENCOUNTER → 2022-03-21 | Outpatient (CLI) | payer OTHER ==
--- NOTE | 2022-03-21 09:12 | US ---
EXAMINATION TYPE: US thyroid st tissue head/neck DATE OF EXAM: 03/21/2022 COMPARISON: US CLINICAL HISTORY: E04.1 Thyroid Nodule. F/U nodules GLAND SIZE: Right Lobe: 4.1 x 1.3 x 1.8 cm Overall Parenchyma: homogenous Left Lobe: 4.3 x 1.3 x 1.5 cm Overall Parenchyma: homogeneous Isthmus Thickness: 0.3 cm NODULES RIGHT: # of nodules measured on right: 1 1. 0.8 X 0.5 x 0.6 cm, mid, solid or almost completely solid, isoechoic nodule, which is wider than tall, with ill-defined margins, without echogenic foci. Prior size: 0.5 x 0.5 x 0.6 cm LEFT: # of nodules measured on left: 1 1. 2.2 X 1.3 x 2.0 cm, lower, solid or almost completely solid, isoechoic nodule, which is wider th an tall, with smooth margins, without echogenic foci. Prior size: 2.3 x 1.2 x 2.0 cm ISTHMUS: # of nodules measured in the isthmus: 0 Bilateral neck scanned, no evidence of lymphadenopathy. Slight increase of nodule right lobe, however measures sub-centimeter. Stable nodule left lobe. IMPRESSION: Stable bilateral thyroid nodularity 2017 ACR TI-RADS LEVEL: TR-RADS 3 - Mildly Suspicious: Follow if > 1.5 cm, FNA if > 2.5 cm *Highest TI-RADS level nodule reported
== END | disposition home or self-care (01) ==
LOC: RADUSWWP 08:33
PROVIDERS: ATTEND Pediatrics
DX: E04.2 Nontoxic multinodular goiter (principal)
CPT/HCPCS: 76536

== ENCOUNTER 2023-01-26 06:36 | Day surgery (SDC) | payer OTHER ==
[~2023-01-26 06:36] MED LIST changes: +LACTATED RINGERS 1,000 ML IV SCH; -TRANEXAMIC ACID IN NACL,ISO-OS 1,000 MG in SALINE 1 100ML.BAG IVPB PRN
[2023-01-26 07:05] VITALS: TEMP 97.2
[2023-01-26] MEDS ORDERED: PROPOFOL 10 MG/ML 20 ML VIAL IV ONE (07:40)
[2023-01-26] MEDS ORDERED: LIDOCAINE 2% INJ 20 MG/ML (2 ML VIAL) ONE (07:40)
--- NOTE | 2023-01-26 08:00 | P.PCN ---
Date of Procedure: 01/26/23 Procedure(s) Performed: Brief history: Patient is a pleasant 47-year-old white female scheduled for an elective upper endoscopy as well as colonoscopy as a part of evaluation of GERD and change in bowel habits Procedure performed: Esophagogastroduodenoscopy with biopsy. Colonoscopy Preoperative diagnosis: GERD Change inbowel habits Anesthesia: MAC Procedure: After informed consent was obtained from the patient was brought into the endoscopy unit and IV sedation was administered by anesthesia under continuous monitoring. Initially upper endoscopy was done. The Olympus GF 160 video endoscope was inserted inserted into the mouth and esophagus intubated without any difficulty and was gradually advanced into the stomach and duodenum and carefully examined. The bulb and second part of the duodenum appeared normal. The scope was then withdrawn into the stomach adequately insufflated with air and upon careful examination the antrum had mild gastritis and biopsies were done from this area. Mucosa of the neha, cardia and fundus appeared normal. The scope was then withdrawn into the esophagus. The GE junction was located at 40 cm to the incisors. It appeared regular and there was a short tongue of Sherman's appearing mucosa extending 2-3 mm proximal to the GE junction which was biopsied Rest of the esophagus appeared normal. Patient tolerated the procedure well. At this time the patient continued to remain sedation. Initial digital rectal examination was normal. Olympus CF 160 video colonoscope was then inserted into the rectum and gradually advanced to the cecum without any difficulty. Careful examination was performed as the scope was gradually being withdrawn. The prep was excellent. The cecum, ascending colon, transverse colon, descending colon, sigmoid colon and rectum appeared normal. Retroflexion was performed in the rectum and no lesions were noted. Patient tolerated the procedure well. Impression: 1. upper endoscopy revealed mild antral gastritis and short segment Sherman's esophagus. 2. endoscopy was within normal limits with no evidence of colorectal neoplasia Recommendations: Findings of this examination were discussed with the patient as well as her family. She was advised to follow with the biopsy results. If the biopsy confirms the presence of Sherman's esophagus he can have a repeat upper endoscopy in 3 years. Recommend repeat colonoscopy in 10 years.
[2023-01-26 08:14] VITALS: RESP 20
[2023-01-26 08:28] VITALS: BP 101/64; PULSE 64
== END 2023-01-26 08:48 | disposition home or self-care (01) ==
LOC: ORWHC2ENDO 06:36
PROVIDERS: ATTEND Internal Medicine Gastroenterology
DX: K29.50 Unspecified chronic gastritis without bleeding (principal); R19.4 Change in bowel habit; K21.00 Gastro-esophageal reflux disease with esophagitis, without bleeding; F32.A Depression, unspecified; Z79.899 Other long term (current) drug therapy; Z98.890 Other specified postprocedural states; Z98.891 History of uterine scar from previous surgery
CPT/HCPCS: 88305; 45378; 43239; J2704; J2001

== ENCOUNTER → 2023-04-06 | Outpatient (CLI) | payer OTHER ==
--- NOTE | 2023-04-09 13:57 | MM ---
Reason for Exam: Screening (asymptomatic). Last mammogram was performed 2 year(s) and 5 month(s) ago. Patient History: Menarche at age 15. First Full-Term at age 26. Right ovary removed at age 34. Hysterectomy at age 34. 1996, Benign Excisional Biopsy on the right side. Risk Values: Juliane 5 year model risk: 1.2%. NCI Lifetime model risk: 10.4%. Prior Study Comparison: 02/28/2018 Bilateral Diagnostic Mammogram, [facility]. 05/28/2019 Bilateral Screening Mammogram, [facility]. 11/09/2020 Bilateral Screening Mammogram, [facility]. Tissue Density: The breast tissue is extremely dense which could obscure a lesion on mammography. Findings: Analyzed By CAD. Pattern appears symmetrical and stable. No significant interval change is evident. A few benign-appearing punctate calcifications are present bilaterally. No suspicious groups of microcalcifications, spiculated or lobular masses, architectural distortion or other secondary signs of malignancy are mammographically apparent. Overall Assessment: Benign, BI-RAD 2 Management: Screening Mammogram of both breasts in 1 year. A negative mammogram report should not preclude additional follow up of suspicious palpable abnormalities. Patient should continue monthly self breast exam. A clinical breast exam by your physician is recommended on an annual basis and results should be correlated with mammographic findings. Electronically signed and approved by: Landen Castillo D.O. Radiologis
== END | disposition home or self-care (01) ==
LOC: RADMAMWWP 10:41
PROVIDERS: ATTEND Pediatrics
DX: Z12.31 Encounter for screening mammogram for malignant neoplasm of breast (principal)
CPT/HCPCS: 77063; 77067

== ENCOUNTER → 2024-09-19 | Outpatient (CLI) | payer OTHER ==
--- NOTE | 2024-09-19 14:53 | MM ---
Reason for Exam: Screening (asymptomatic). Last mammogram was performed 1 year(s) and 5 month(s) ago. Patient History: Menarche at age 15. First Full-Term at age 26. Right ovary removed at age 34. Hysterectomy at age 34. 1996, Benign Excisional Biopsy on the right side. Risk Values: Juliane 5 year model risk: 1.1%. NCI Lifetime model risk: 10.2%. Prior Study Comparison: 05/28/2019 Bilateral Screening Mammogram, [facility]. 11/09/2020 Bilateral Screening Mammogram, [facility]. 04/06/2023 Bilateral MG 3D screening mammo w/cad, [facility]. Tissue Density: The breasts are heterogeneously dense, which may obscure small masses. Findings: Analyzed By CAD. There are 2 biopsy clips in the right breast that are redemonstrated. There are a few small benign appearing small round calcifications in the bilateral breasts again seen. There is no suspicious group of microcalcifications or new suspicious mass in either breast. Overall Assessment: Benign, BI-RAD 2 Management: Screening Mammogram of both breasts in 1 year. . Patient should continue monthly self-breast exams. A clinical breast exam by your physician is recommended on an annual basis. This exam should not preclude additional follow-up of suspicious palpable abnormalities. Note on Juliane scores and lifetime risk: 1. A Juliane score greater than 3% is considered moderate risk. If this is the case, consider specialist referral to assess eligibility for a risk reducing agent. 2. If overall lifetime risk for the development of breast cancer is 20% or higher, the patient may qualify for future screening with alternating mammogram and breast MRI. [facility], , 09/19/2024 2:48 PM. Electronically signed and approved by: Guicho Hendrickson M.D.
== END | disposition home or self-care (01) ==
LOC: RADMAMWWP 13:45
PROVIDERS: ATTEND Pediatrics
DX: Z12.31 Encounter for screening mammogram for malignant neoplasm of breast (principal); Z90.721 Acquired absence of ovaries, unilateral; R92.333 Mammographic heterogeneous density, bilateral breasts; Z98.82 Breast implant status
CPT/HCPCS: 77063; 77067